=== PATIENT | female | born 1975 | race Caucasian/White ===

== ENCOUNTER 2017-12-24 16:57 | Emergency (ER) | payer BC, SELFPAY ==
[2017-12-24 16:58] VITALS: BP 170/116; PULSE 104; RESP 14; TEMP 36.5; O2SAT 100; BMI 25.9
--- NOTE | 2017-12-24 17:18 | CT_ITS ---
STUDY: CT SOFT TISSUE NECK WITH CONTRAST REASON FOR EXAM: Female, 42 years old. Left lower dental infection RADIATION DOSAGE (If Supplied By Facility): CTDIvol = ( 17.55 ) mGy, DLP = ( 525.95 ) mGycm TECHNIQUE: The patient was scanned in a multi-detector CT scanner. High resolution transaxial imaging was performed following intravenous administration of 100 ml of Isovue 300 contrast material. Sagittal and coronal images were reconstructed. Individualized dose optimization techniques were used for this CT. COMPARISON: None. FINDINGS: Normal bilateral parotid glands. Normal bilateral hospital insurance clerk spaces. Normal bilateral parapharyngeal spaces. Normal bilateral carotid spaces. Normal bilateral sublingual and submandibular glands and spaces. There is a collection noted lateral to the left side of the mandible between the premolar and molar measuring 1.7 x 1.4 x 0.6 cm with an enhancing rim likely representing an abscess. Overlying subcutaneous edema is noted. Normal visualized nasopharynx. Normal retropharyngeal space. Normal perivertebral space. Mildly prominent tonsils. The visualized tongue, tongue base and oropharynx are normal. Mild left submandibular and submental adenopathy. Normal epiglottis, bilateral vallecula and hypopharynx. The pre-epiglottic and paraglottic adipose spaces are normal. Normal visualized bilateral piriform sinuses, aryepiglottic folds, vocal cords, and arytenoid-cricoid articulations. Normal subglottic trachea. Normal bilateral lobes of the thyroid gland. Normal visualized pulmonary apices. Normal visualized paranasal sinuses. Emphysematous changes of the visualized cervical spine. CT/Soft Tissue Neck WITH Contrast IMPRESSION: Possible abscess just lateral to the left side of the mandible between the premolar and molar. Left-sided facial subcutaneous edema. Electronically Signed: Morgan Michaud DO at 19:06 EST Tel [phone], Service support ,
--- NOTE | 2017-12-24 17:21 | ED.VISSUMM ---
- ER Visit Summary Date of Service: 12/24/17 Chief Complaint: Left lower facial swelling History of Present Illness: The patient is a 42 F worsening left lower facial swelling over the past 4 days. Dealing with a dental fracture with infection 20 days ago saw dentist Dr. Azevedo. Was put on 10 days penicillin states was improving was referred to an oral maxillary surgeon, unable to get in. States 4 days ago started worsening. No fevers. No trouble swallowing. Saw PCP yesterday started on clindamycin status post 4 doses. Tobacco history. No allergies. Physical Examination: General: Alert and oriented ?3, no acute distress HEENT: Normocephalic, atraumatic. Moist mucosa membranes. Mild swelling left lower jaw. There is tender palpation tooth 19, there was some fluctuance along the gumline. No sublingual edema. Airway patent. No trismus. Neck: supple, nontender. No crepitus Cardiovascular: Regular tachycardic rate and rhythm, no murmurs Respiratory: Normal breath sounds, symmetric, no distress Abdomen: Soft, nontender, nondistended Extremities: Nontender, no edema, pulses intact ?4 Neuro: no focal neurological deficits. Test Results: White count 10.4. CT IV contrast neck is 1.7 x 1.4 x 0.6 abscess left lateral to mandible with mild submandibular gland enlargement. Airway patent. Emergency Department Course and Treatment: Patient nontoxic increased swelling. Labs drawn normal white count. Started on Unasyn. Toradol was given for comfort. She did have anything stronger. CT scan notes abscess left lateral. Patient airway patent. Patient states could not get in with an oral surgeon for 2 weeks. I discussed with Dr. Alcala updated on patient's findings. He states add Augmentin to clindamycin. Use heat for swelling at this time. She is to call the office in the morning for close outpatient follow-up. Treatment Plan: [] Disposition: Discharge Impression: Left lower dental abscess This note was generated with [employer] (formerly [employer]) dictation software. It may contain incorrect words, spelling, and punctuation that were not noted in review of the chart prior to signing ED Disposition - Plan for ED Patient: Disposition: Home or Assisted Living Chief Complaint: Dental Diagnosis: Dental abscess Instructions: Dental Abscess Prescriptions: Amoxicillin/Potassium Clav [Augmentin 875-125 Tablet] 1 each PO BID #20 tablet Referrals: Ren Noonan MD [Primary Care Provider] - Jimbo Alcala DDS [STAFF PHYSICIAN] - 1 Day Additional Instructions: 1.7x1.4x0.6cm abscess left. Use heat for swelling. Take the Augmentin with your clindamycin. Call tomorrow for follow-up.
[2017-12-24 17:50] LABS: Absolute Neutrophil Count 7.2 X10^3/uL (2.0-7.7); Basophil# 0.01 X10^3/uL; Basophil% 0.1 % (0-1); Eosinophil# 0.11 X10^3/uL; Eosinophils% 1.1 % (0-5); Hematocrit 41.1 % (37-47); Hemoglobin 13.3 g/dl (12.0-15.0); Lymphocyte % 20.2 % (19-41); Mean Corp Hgb Conc 32.4 g/gl (32-36); Mean Corpuscular Hgb 33.2 pg (27.0-32.0); Mean Corpuscular Volume 102.5 fL (81-99); Mean Platelet Vol. 10.8 fl (6.2-12.0); Monocyte# 0.99 X10^3/uL; Monocyte% 9.5 % (0-10); Neutrophil # 7.17 X10^3/uL (2.7-7.7); Neutrophil % 68.8 % (47-70); Platelet Count 245 K/mm3 (150-450); RBC Distribution Width CV 12.7 % (11.6-14.6); RBC Distribution Width SD 47.6 fl (35.1-43.9); Red Blood Count 4.01 M/mm3 (4.2-5.4); White Blood Count 10.4 K/mm3 (4.4-11.0)
[2017-12-24 17:51] LABS: POSITIVE COUNT NO; POSITIVE DIFFERENTIAL NO; POSITIVE MORPHOLOGY NO
[2017-12-24 17:52] LABS: International Normalized Ratio 0.9; Prothrombin Time (Protime)PT. 12.2 SECONDS (11.7-14.9)
[2017-12-24 17:53] LABS: Partial Thromboplast Time 30.4 Seconds (24.1-36.2)
[2017-12-24 18:00] LABS: Anion Gap 6 (5-15); BUN 22 mg/dL (7-18); BUN/Creat Ratio 22.3 RATIO (10-20); Calcium,Total 8.8 mg/dL (8.5-10.1); Chloride 107 mmol/L (98-107); Creatinine, Serum 0.98 mg/dL (0.55-1.02); EST Glomerular Filtration Rate 66 mL/min (>60); Est Glom Filt Rate - Afr Amer 80 mL/min (>60); Estimated Creatinine Clearance 76.98 ml/min; Glucose 96 mg/dL (74-106); Potassium 3.7 mmol/L (3.5-5.1); Sodium Level 142 mmol/L (136-145)
[2017-12-24 18:04] LABS: hCG Titer Quant., Serum < 1 mIU/mL (<9 non-preg)
[2017-12-24] MEDS: Ketorolac 30 MG/ML Syringe IV (18:57)
[2017-12-24 18:59] VITALS: BP 159/96; PULSE 68; RESP 18; O2SAT 98
[2017-12-24 19:33] VITALS: BP 169/96; PULSE 73; RESP 16; O2SAT 99
== END 2017-12-24 19:34 | disposition home or self-care (01) ==
PROVIDERS: Emergency Provider Emergency Medicine; Family Provider Family Medicine; PCP Family Medicine
DX: K04.7 Periapical abscess without sinus (principal); S02.5XXA Fracture of tooth (traumatic), initial encounter for closed fracture; X58.XXXA Exposure to other specified factors, initial encounter; Y93.9 Activity, unspecified; Y92.9 Unspecified place or not applicable; Y99.9 Unspecified external cause status; R00.0 Tachycardia, unspecified
CPT/HCPCS: 70491; 80048; 84702; 85025; 85610; 85730; 96365; 96375; 99285; J7030; Q9967; A4216; J0295